=== PATIENT | female | born 1945 | race Caucasian/White ===

== ENCOUNTER 2017-07-04 13:08 | Inpatient (IN) | payer MEDICARE, MEDICAID ==
[~2017-07-04] VITALS: Ht 152.4 cm; Wt 45.5 kg
[~2017-07-04 13:08] MED LIST: ALBU8.5H8 IH; ATOR20TA66 PO; ATRIN INH; CEFP100T7 PO; FLUT1AER INH; GUAI1TBM19 PO; LEVO750T46 PO; LISI-600 PO; NO HOME MEDS; PRED10TA23 PO; VERA120T96 PO
[2017-07-04] MEDS ORDERED: dexamethasone sod phosphate 10mg/ml inj IV STA (13:19)
[2017-07-04] MEDS ORDERED: ipratropium/albuterol 3ml nebule NEB ONE (13:20)
[2017-07-04] MEDS ORDERED: azithromycin 250mg tablet PO ONE (13:25)
[2017-07-04] MEDS ORDERED: CefTRIAXone 2gm/NS 100ml IVPB 100 ML IV ONE (13:25)
[2017-07-04 13:37] LABS: BASOPHILS % (AUTO) 0.4 % (0-1); EOSINOPHILS # (AUTO) 0.1 X10'3 (0-0.9); HEMATOCRIT 52.4 % (35.0-45.0); HEMOGLOBIN 16.2 g/dl (12.0-16.0); LYMPHOCYTES # (AUTO) 1.3 X10'3 (1.1-4.8); LYMPHOCYTES % (AUTO) 15.4 % (21-51); MEAN CORPUSCULAR HEMOGLOBIN 28.6 PG (27.0-31.0); MEAN CORPUSCULAR HGB CONC 30.9 % (33.0-36.5); MEAN CORPUSCULAR VOLUME 92.5 FL (78-98); MEAN PLATELET VOLUME 10.4 FL (7.4-10.4); MONOCYTES # (AUTO) 0.9 X10'3 (0-0.9); MONOCYTES % (AUTO) 11.4 % (2-12); NEUTROPHILS # (AUTO) 5.9 X10'3 (1.8-7.7); NEUTROPHILS % (AUTO) 71.8 % (42-75); PLATELET COUNT 215 X10'3 (140-440); RED BLOOD COUNT 5.67 X10'6 (4.20-5.60); RED CELL DISTRIBUTION WIDTH 17.6 % (11.5-14.5); WHITE BLOOD COUNT 8.3 X10'3 (4.5-11.0)
[2017-07-04 13:46] LABS: ALANINE AMINOTRANSFERASE 58 U/L (12-78); ALBUMIN 2.6 G/DL (3.4-5.0); ALBUMIN/GLOBULIN RATIO 0.7 (1.1-1.5); ALKALINE PHOSPHATASE 93 IU/L (46-116); ANION GAP 3 (8-16); ASPARTATE AMINO TRANSFERASE 51 U/L (10-37); BILIRUBIN,TOTAL 0.8 MG/DL (0.1-1.0); BLOOD UREA NITROGEN 55 MG/DL (7-18); BUN/CREATININE RATIO 27.6 (6.6-38.0); CALCIUM 9.6 MG/DL (8.5-10.1); CHLORIDE 106 MMOL/L (99-107); CREATININE 1.99 MG/DL (0.40-0.90); GLUCOSE 111 MG/DL (70-104); POTASSIUM 5.9 MMOL/L (3.5-5.1); SODIUM 143 MMOL/L (135-145); TOTAL CARBON DIOXIDE 34.4 MMOL/L (24-32); TOTAL PROTEIN 6.4 G/DL (6.4-8.2); eGFR 25 ML/MIN
[2017-07-04 13:48] LABS: LARGE PLATELETS MODERATE; PLATELET ESTIMATE NORMAL
[2017-07-04] MEDS ORDERED: sodium polystyrene sulfonate 15gm/60ml oral suspension PO ONE (13:50)
[2017-07-04] MEDS ORDERED: dextrose 50%-water 50ml dispensing syringe IV ONE (13:50)
[2017-07-04] MEDS ORDERED: sodium bicarbonate (0.9mEq/ml) 44.6 mEq/50ml syringe IV ONE (13:50)
[2017-07-04] MEDS ORDERED: calcium chloride 100 MG/1 ML inj IV ONE (13:50)
[2017-07-04] MEDS ORDERED: furosemide 40mg/4ml inj IV ONE (13:50)
[2017-07-04] MEDS ORDERED: insulin regular, human 10 units/0.1 ml syringe IV ONE (13:50)
[2017-07-04 13:53] LABS: ETHANOL < 0.010 GM/DL (0.0-0.010)
[2017-07-04] MEDS ORDERED: aspirin 81mg tab.chew PO ONE (13:55)
[2017-07-04] MEDS ORDERED: sodium bicarbonate 1 MEQ/1 ml inj IV ONE (13:55)
[2017-07-04] MEDS ORDERED: heparin 10,000 units/1 ML INJ IV ONE ×2 (13:55→14:00)
[2017-07-04 14:05] LABS: ANISOCYTOSIS 2+; POLYCHROMASIA 1+; TARGET CELLS 1+
[2017-07-04] MEDS ORDERED: enalaprilat dihydrate 2.5mg/2ml vial IV ONE (14:05)
[2017-07-04] MEDS ORDERED: nitroGLYCERIN-Tridil 50MG/D5W 250 ML IV ONE (14:05)
[2017-07-04 14:16] LABS: ABG BASE EXCESS -0.6 mmol/L (-2.0-3.0); ABG HCO3 27.3 mmol/L (22.0-26.0); ABG OXYGEN SATURATION 71.9 % (95-98); ABG PCO2 (T) 57.3 mmHg (32.0-45.0); ABG PH (T) 7.296 (7.350-7.450); ABG PO2 (T) 41.5 mmHg (83-108); ALLEN'S TEST Positive; FCOHb 2.8 % (0.5-1.5); FMetHb 0.2 % (0.3-1.12); FO2Hb 69.7 % (94-100); TOTAL HEMOGLOBIN 16.7 G/dl (12.0-16.0)
[2017-07-04 14:20] LABS: INR 1.2 INR; PARTIAL THROMBOPLASTIN TIME 25 SECONDS (22-32); PROTHROMBIN TIME 12.1 SECONDS (9.0-12.0)
[2017-07-04 14:48] LABS: URINE AMPHETAMINE SCREEN NEGATIVE (Neg); URINE BARBITUATE SCREEN NEGATIVE (Neg); URINE BENZODIAZEPINES SCREEN NEGATIVE (Neg); URINE CANNABINOID SCREEN NEGATIVE (Neg); URINE COCAINE SCREEN NEGATIVE (Neg); URINE METHADONE SCREEN NEGATIVE (Neg); URINE OPIATE SCREEN NEGATIVE (Neg); URINE PHENCYCLIDINE SCREEN NEGATIVE (Neg)
[2017-07-04] MEDS ORDERED: acetaZOLAMIDE 250mg tablet PO ONE (15:30)
[2017-07-04] MEDS ORDERED: normal saline 1000ml 1,000 ML IV SCH (15:33)
[2017-07-04] MEDS ORDERED: potassium Cl 40MEQ/NS 500ml 500 ML IV PRN ×2 (15:35)
[2017-07-04] MEDS ORDERED: acetaminophen 325mg tablet PO PRN (15:35)
[2017-07-04] MEDS ORDERED: magnesium hydroxide 30ml (MOM) UD suspension PO PRN (15:35)
[2017-07-04] MEDS ORDERED: magnesium 4gm in 100ml NS 100 ML IV PRN (15:35)
[2017-07-04] MEDS ORDERED: ondansetron/PF 4mg/2ml inj IV PRN (15:35)
[2017-07-04] MEDS ORDERED: potassium Cl 20 mEq SR tablet PO PRN ×2 (15:35)
[2017-07-04] MEDS ORDERED: morphine sulfate 8 MG/ML SYRINGE IV PRN ×2 (15:35)
[2017-07-04] MEDS ORDERED: magnesium 2GM in 50ml NS 50 ML IV PRN (15:35)
[2017-07-04] MEDS ORDERED: magnesium Cl slow-release 64mg tablet PO PRN (15:35)
[2017-07-04 15:50] LABS: ABG BASE EXCESS 5.5 mmol/L (-2.0-3.0); ABG HCO3 34.4 mmol/L (22.0-26.0); ABG PCO2 (T) 67.6 mmHg (32.0-45.0); ABG PH (T) 7.324 (7.350-7.450); ALLEN'S TEST Positive; FCOHb 2.2 % (0.5-1.5); FMetHb 0.4 % (0.3-1.12); FO2Hb 96.4 % (94-100); RESPIRATORY RATE 16 b/min; RESPIRATORY RATE (OBSERVED) 18 b/min; TOTAL HEMOGLOBIN 16.4 G/dl (12.0-16.0)
[2017-07-04 15:55] LABS: CLARITY,URINE CLOUDY (Clear); COLOR,URINE YELLOW (Yellow); GLUCOSE, URINE NEGATIVE (Neg); KETONES,URINE NEGATIVE (Neg); LEUKOCYTE ESTERASE ,URINE LARGE (Neg); NITRITES, URINE NEGATIVE (Neg); OCCULT BLOOD,URINE TRACE-INTACT (Neg); PROTEIN,URINE 30 mg/dl (Neg)
[2017-07-04 15:56] LABS: UA COLLECTION TYPE FOLEY CATH
[2017-07-04 15:58] LABS: CREATININE,URINE RANDOM 317.9 MG/DL; TOTAL PROTEIN,URINE RANDOM 86.5 MG/DL
[2017-07-04] MEDS ORDERED: levoFLOXACIN-Levaquin 500mg/D5 100 ML IV ONE (16:00)
[2017-07-04 16:03] LABS: WBC,URINE TNTC /HPF (0-4)
[2017-07-04 16:04] LABS: BACTERIA,URINE FEW /HPF (Neg); RBC,URINE 0-2 /HPF (0-2); SQUAMOUS EPITHELIAL CELL,UR FEW /LPF (FEW)
[2017-07-04] MEDS ORDERED: nitroGLYCERIN 0.4mg/hour patch TD SCH (16:25)
[2017-07-04 19:00] VITALS: BP 136/83
[2017-07-04] MEDS ORDERED: verapamil SR 120mg (sust. release) tab PO SCH (20:00)
[2017-07-04] MEDS ORDERED: GUAIFENESIN PO SCH (20:00)
[2017-07-04] MEDS ORDERED: DEXTROMETHORPHAN PO SCH (20:00)
[2017-07-04] MEDS ORDERED: temazepam 15mg capsule PO PRN (21:00)
[2017-07-04] MEDS ORDERED: heparin 10,000 units/1 ML INJ IV PRN ×2 (21:45→21:50)
[2017-07-04 23:00] VITALS: BP 122/80
[2017-07-05 01:39] LABS: BASOPHILS % (AUTO) 0.3 % (0-1); EOSINOPHILS % (AUTO) 0 % (0-6); HEMATOCRIT 46.2 % (35.0-45.0); HEMOGLOBIN 14.7 g/dl (12.0-16.0); LYMPHOCYTES # (AUTO) 0.7 X10'3 (1.1-4.8); LYMPHOCYTES % (AUTO) 11.1 % (21-51); MEAN CORPUSCULAR HGB CONC 31.7 % (33.0-36.5); MEAN CORPUSCULAR VOLUME 91.3 FL (78-98); MEAN PLATELET VOLUME 10.5 FL (7.4-10.4); MONOCYTES # (AUTO) 0.9 X10'3 (0-0.9); MONOCYTES % (AUTO) 13.1 % (2-12); NEUTROPHILS # (AUTO) 5.1 X10'3 (1.8-7.7); NEUTROPHILS % (AUTO) 75.5 % (42-75); PLATELET COUNT 181 X10'3 (140-440); RED BLOOD COUNT 5.06 X10'6 (4.20-5.60); RED CELL DISTRIBUTION WIDTH 17.5 % (11.5-14.5); WHITE BLOOD COUNT 6.7 X10'3 (4.5-11.0)
[2017-07-05 01:54] LABS: ALANINE AMINOTRANSFERASE 48 U/L (12-78); ALBUMIN 2.2 G/DL (3.4-5.0); ALBUMIN/GLOBULIN RATIO 0.7 (1.1-1.5); ALKALINE PHOSPHATASE 75 IU/L (46-116); ANION GAP 3 (8-16); ASPARTATE AMINO TRANSFERASE 43 U/L (10-37); BILIRUBIN,TOTAL 0.4 MG/DL (0.1-1.0); BLOOD UREA NITROGEN 54 MG/DL (7-18); BUN/CREATININE RATIO 36.7 (6.6-38.0); CALCIUM 9.2 MG/DL (8.5-10.1); CHLORIDE 107 MMOL/L (99-107); CREATININE 1.47 MG/DL (0.40-0.90); GLUCOSE 106 MG/DL (70-104); POTASSIUM 4.2 MMOL/L (3.5-5.1); SODIUM 146 MMOL/L (135-145); TOTAL CARBON DIOXIDE 36.3 MMOL/L (24-32); TOTAL PROTEIN 5.4 G/DL (6.4-8.2); eGFR 35 ML/MIN
[2017-07-05 01:57] LABS: CHOL/HDL RATIO 5.1 (0.00-4.99); CHOLESTEROL 122 MG/DL (0-200); HDL CHOLESTEROL 24 MG/DL (35-60); LDL CHOLESTEROL 95 MG/DL (50-100); MAGNESIUM 1.7 MG/DL (1.5-2.4); TRIGLYCERIDES 46 MG/DL (20-135)
[2017-07-05 03:00] VITALS: BP 133/67
[2017-07-05 06:00] VITALS: BP 109/56
[2017-07-05] MEDS: K and/or MAG REPLACEMENT MC SCH (06:54)
[2017-07-05] MEDS: atorvastatin 20mg tablet PO SCH (07:34)
[2017-07-05] MEDS: aspirin 81mg tab.chew PO SCH (07:45)
[2017-07-05] MEDS ORDERED: lisinopril 20mg tablet PO SCH (08:00)
[2017-07-05 11:00] VITALS: BP 125/57
[2017-07-05 15:00] VITALS: BP 107/67
[2017-07-05] MEDS: normal saline 1000ml 1,000 ML IV SCH (17:58)
[2017-07-05 19:00] VITALS: BP 117/66
[2017-07-05] MEDS: nitroGLYCERIN 0.4mg/hour patch TD SCH (19:37)
[2017-07-05 23:00] VITALS: BP 115/55
[2017-07-06 03:00] VITALS: BP 123/55
[2017-07-06 05:33] LABS: BASOPHILS % (AUTO) 0.5 % (0-1); EOSINOPHILS # (AUTO) 0.2 X10'3 (0-0.9); EOSINOPHILS % (AUTO) 1.9 % (0-6); HEMATOCRIT 44.1 % (35.0-45.0); HEMOGLOBIN 13.7 g/dl (12.0-16.0); LYMPHOCYTES # (AUTO) 1.7 X10'3 (1.1-4.8); LYMPHOCYTES % (AUTO) 18.9 % (21-51); MEAN CORPUSCULAR HEMOGLOBIN 28.8 PG (27.0-31.0); MEAN CORPUSCULAR HGB CONC 31.1 % (33.0-36.5); MEAN CORPUSCULAR VOLUME 92.7 FL (78-98); MEAN PLATELET VOLUME 10.5 FL (7.4-10.4); MONOCYTES # (AUTO) 1.4 X10'3 (0-0.9); MONOCYTES % (AUTO) 15.6 % (2-12); NEUTROPHILS # (AUTO) 5.7 X10'3 (1.8-7.7); NEUTROPHILS % (AUTO) 63.1 % (42-75); PLATELET COUNT 170 X10'3 (140-440); RED BLOOD COUNT 4.76 X10'6 (4.20-5.60); RED CELL DISTRIBUTION WIDTH 17.8 % (11.5-14.5)
[2017-07-06 06:00] VITALS: BP 105/73
[2017-07-06 06:06] LABS: ALANINE AMINOTRANSFERASE 51 U/L (12-78); ALBUMIN 2.2 G/DL (3.4-5.0); ALBUMIN/GLOBULIN RATIO 0.7 (1.1-1.5); ALKALINE PHOSPHATASE 74 IU/L (46-116); ANION GAP 2 (8-16); ASPARTATE AMINO TRANSFERASE 39 U/L (10-37); BILIRUBIN,TOTAL 0.3 MG/DL (0.1-1.0); BLOOD UREA NITROGEN 44 MG/DL (7-18); CHLORIDE 108 MMOL/L (99-107); CREATININE 0.83 MG/DL (0.40-0.90); GLUCOSE 99 MG/DL (70-104); MAGNESIUM 1.9 MG/DL (1.5-2.4); POTASSIUM 4.1 MMOL/L (3.5-5.1); SODIUM 146 MMOL/L (135-145); TOTAL CARBON DIOXIDE 36.1 MMOL/L (24-32); TOTAL PROTEIN 5.4 G/DL (6.4-8.2); eGFR 68 ML/MIN
[2017-07-06] MEDS: atorvastatin 20mg tablet PO SCH (07:05)
[2017-07-06] MEDS: aspirin 81mg tab.chew PO SCH (07:05)
[2017-07-06] MEDS: normal saline 1000ml 1,000 ML IV SCH (07:06)
[2017-07-06] MEDS: K and/or MAG REPLACEMENT MC SCH (08:00)
[2017-07-06] MEDS ORDERED: levoFLOXACIN-Levaquin 250mg/D5 50 ML IV SCH (08:00)
[2017-07-06 09:24] LABS: PLATELET ESTIMATE NORMAL; POLYCHROMASIA FEW; TOTAL CELLS COUNTED 100
[2017-07-06 09:25] LABS: SMUDGE CELLS 2+
[2017-07-06 09:26] LABS: LARGE PLATELETS FEW; TARGET CELLS FEW
[2017-07-06 10:35] LABS: ABG BASE EXCESS 4.2 mmol/L (-2.0-3.0); ABG HCO3 34.6 mmol/L (22.0-26.0); ABG OXYGEN SATURATION 92.3 % (95-98); ABG PCO2 (T) 80.6 mmHg (32.0-45.0); ABG PO2 (T) 69.1 mmHg (83-108); ALLEN'S TEST Positive; FCOHb 0.7 % (0.5-1.5); FMetHb 0.3 % (0.3-1.12); FO2Hb 91.4 % (94-100)
[2017-07-06 11:00] VITALS: BP 122/61
[2017-07-06 15:00] VITALS: BP 123/55
[2017-07-06 16:00] LABS: ABG BASE EXCESS 4.6 mmol/L (-2.0-3.0); ABG HCO3 33.5 mmol/L (22.0-26.0); ABG PCO2 (T) 69.6 mmHg (32.0-45.0); ALLEN'S TEST Positive; FCOHb 0.5 % (0.5-1.5); FMetHb 0.3 % (0.3-1.12); FO2Hb 91.3 % (94-100); RESPIRATORY RATE 16 b/min
[2017-07-06] MEDS ORDERED: CADD PCA waste documentation MC PRN (16:55)
[2017-07-06] MEDS ORDERED: naloxone 0.4 mg/ml inj IV PRN (16:55)
[2017-07-06] MEDS ORDERED: ipratropium/albuterol 3ml nebule NEB PRN (16:55)
[2017-07-06] MEDS ORDERED: HYDROmorphone/NS 1 mg/ml CADD 50 ML IV SCH (17:00)
[2017-07-06] MEDS: methylPREDNISolone sod succ 125mg/2ml vial IV SCH ×2 (17:40→22:02)
[2017-07-06 19:00] VITALS: BP 132/79
[2017-07-06] MEDS: nitroGLYCERIN 0.4mg/hour patch TD SCH (19:30)
[2017-07-06] MEDS: ipratropium/albuterol 3ml nebule NEB SCH (20:51)
[2017-07-06 23:00] VITALS: BP 118/55
[2017-07-07] VITALS (8 sets, daily range): BP systolic 119–161; BP diastolic 59–82
[2017-07-07] MEDS: methylPREDNISolone sod succ 125mg/2ml vial IV SCH ×4 (01:48→20:12)
[2017-07-07] MEDS: ipratropium/albuterol 3ml nebule NEB SCH ×4 (03:30→21:09)
[2017-07-07 05:25] LABS: BASOPHILS % (AUTO) 0.1 % (0-1); EOSINOPHILS % (AUTO) 0.2 % (0-6); HEMOGLOBIN 14.7 g/dl (12.0-16.0); LYMPHOCYTES # (AUTO) 0.2 X10'3 (1.1-4.8); LYMPHOCYTES % (AUTO) 5.6 % (21-51); MEAN CORPUSCULAR HEMOGLOBIN 28.9 PG (27.0-31.0); MEAN CORPUSCULAR HGB CONC 31.4 % (33.0-36.5); MEAN CORPUSCULAR VOLUME 92.1 FL (78-98); MEAN PLATELET VOLUME 10.4 FL (7.4-10.4); MONOCYTES # (AUTO) 0.1 X10'3 (0-0.9); MONOCYTES % (AUTO) 1.3 % (2-12); NEUTROPHILS % (AUTO) 92.8 % (42-75); PLATELET COUNT 152 X10'3 (140-440); RED CELL DISTRIBUTION WIDTH 17.7 % (11.5-14.5); WHITE BLOOD COUNT 4.4 X10'3 (4.5-11.0)
[2017-07-07 05:53] LABS: ALANINE AMINOTRANSFERASE 41 U/L (12-78); ALBUMIN 2.2 G/DL (3.4-5.0); ALBUMIN/GLOBULIN RATIO 0.6 (1.1-1.5); ALKALINE PHOSPHATASE 73 IU/L (46-116); ANION GAP 0 (8-16); ASPARTATE AMINO TRANSFERASE 22 U/L (10-37); BILIRUBIN,TOTAL 0.4 MG/DL (0.1-1.0); BLOOD UREA NITROGEN 33 MG/DL (7-18); BUN/CREATININE RATIO 47.8 (6.6-38.0); CALCIUM 9.4 MG/DL (8.5-10.1); CHLORIDE 108 MMOL/L (99-107); CREATININE 0.69 MG/DL (0.40-0.90); GLUCOSE 146 MG/DL (70-104); MAGNESIUM 1.9 MG/DL (1.5-2.4); POTASSIUM 4.7 MMOL/L (3.5-5.1); SODIUM 142 MMOL/L (135-145); TOTAL CARBON DIOXIDE 34.4 MMOL/L (24-32); TOTAL PROTEIN 5.7 G/DL (6.4-8.2); eGFR 84 ML/MIN
[2017-07-07] MEDS: K and/or MAG REPLACEMENT MC SCH (06:33)
[2017-07-07] MEDS: aspirin 81mg tab.chew PO SCH (07:28)
[2017-07-07] MEDS: atorvastatin 20mg tablet PO SCH (07:28)
[2017-07-07] MEDS: lactobacillus rhamnosus 10,000 MMU CELLS/CAPSULE PO SCH (17:12)
[2017-07-07] MEDS: nitroGLYCERIN 0.4mg/hour patch TD SCH (19:12)
[2017-07-07] MEDS: mag hydrox/Alum hydrox/simeth 30ml oral suspension PO PRN (21:09)
[2017-07-08] MEDS: mag hydrox/Alum hydrox/simeth 30ml oral suspension PO PRN (01:43)
[2017-07-08] MEDS: methylPREDNISolone sod succ 125mg/2ml vial IV SCH ×2 (01:43→08:26)
[2017-07-08] MEDS: ipratropium/albuterol 3ml nebule NEB SCH ×4 (02:50→20:06)
[2017-07-08 03:00] VITALS: BP 116/45
[2017-07-08 05:24] LABS: BASOPHILS % (AUTO) 0 % (0-1); EOSINOPHILS # (AUTO) 0.1 X10'3 (0-0.9); EOSINOPHILS % (AUTO) 1.3 % (0-6); HEMOGLOBIN 14.3 g/dl (12.0-16.0); LYMPHOCYTES # (AUTO) 0.3 X10'3 (1.1-4.8); LYMPHOCYTES % (AUTO) 2.3 % (21-51); MEAN CORPUSCULAR HEMOGLOBIN 28.8 PG (27.0-31.0); MEAN CORPUSCULAR HGB CONC 31.8 % (33.0-36.5); MEAN CORPUSCULAR VOLUME 90.3 FL (78-98); MEAN PLATELET VOLUME 10.5 FL (7.4-10.4); MONOCYTES # (AUTO) 0.4 X10'3 (0-0.9); NEUTROPHILS # (AUTO) 10.1 X10'3 (1.8-7.7); NEUTROPHILS % (AUTO) 92.4 % (42-75); PLATELET COUNT 151 X10'3 (140-440); RED BLOOD COUNT 4.98 X10'6 (4.20-5.60); WHITE BLOOD COUNT 10.9 X10'3 (4.5-11.0)
[2017-07-08 05:35] LABS: ALANINE AMINOTRANSFERASE 33 U/L (12-78); ALBUMIN 2.3 G/DL (3.4-5.0); ALBUMIN/GLOBULIN RATIO 0.7 (1.1-1.5); ALKALINE PHOSPHATASE 65 IU/L (46-116); ANION GAP 2 (8-16); ASPARTATE AMINO TRANSFERASE 20 U/L (10-37); BILIRUBIN,TOTAL 0.5 MG/DL (0.1-1.0); BLOOD UREA NITROGEN 30 MG/DL (7-18); BUN/CREATININE RATIO 41.1 (6.6-38.0); CALCIUM 9.5 MG/DL (8.5-10.1); CHLORIDE 107 MMOL/L (99-107); CREATININE 0.73 MG/DL (0.40-0.90); GLUCOSE 147 MG/DL (70-104); POTASSIUM 4.1 MMOL/L (3.5-5.1); SODIUM 143 MMOL/L (135-145); TOTAL CARBON DIOXIDE 34.5 MMOL/L (24-32); TOTAL PROTEIN 5.8 G/DL (6.4-8.2); eGFR 78 ML/MIN
[2017-07-08 06:00] VITALS: BP 142/83
[2017-07-08] MEDS: K and/or MAG REPLACEMENT MC SCH (08:00)
[2017-07-08] MEDS: aspirin 81mg tab.chew PO SCH (08:26)
[2017-07-08] MEDS: lactobacillus rhamnosus 10,000 MMU CELLS/CAPSULE PO SCH ×2 (08:26→17:32)
[2017-07-08] MEDS: atorvastatin 20mg tablet PO SCH (08:26)
[2017-07-08] MEDS: levoFLOXACIN 250mg tablet PO SCH (10:59)
[2017-07-08 11:00] VITALS: BP 163/71
[2017-07-08 15:00] VITALS: BP 165/73
[2017-07-08 19:00] VITALS: BP 161/86
[2017-07-08] MEDS: nitroGLYCERIN 0.4mg/hour patch TD SCH (19:32)
[2017-07-08] MEDS: methylPREDNISolone sod succ/PF 40mg inj. IV SCH (20:19)
[2017-07-08 23:00] VITALS: BP 152/74
[2017-07-09 03:00] VITALS: BP 146/85
[2017-07-09] MEDS: ipratropium/albuterol 3ml nebule NEB SCH ×4 (03:38→20:07)
[2017-07-09 05:19] LABS: BASOPHILS % (AUTO) 0 % (0-1); EOSINOPHILS # (AUTO) 0.1 X10'3 (0-0.9); HEMATOCRIT 47.1 % (35.0-45.0); HEMOGLOBIN 14.9 g/dl (12.0-16.0); LYMPHOCYTES # (AUTO) 0.4 X10'3 (1.1-4.8); LYMPHOCYTES % (AUTO) 2.8 % (21-51); MEAN CORPUSCULAR HEMOGLOBIN 28.9 PG (27.0-31.0); MEAN CORPUSCULAR HGB CONC 31.6 % (33.0-36.5); MEAN CORPUSCULAR VOLUME 91.5 FL (78-98); MEAN PLATELET VOLUME 10.7 FL (7.4-10.4); MONOCYTES # (AUTO) 0.7 X10'3 (0-0.9); MONOCYTES % (AUTO) 5.3 % (2-12); NEUTROPHILS # (AUTO) 11.4 X10'3 (1.8-7.7); NEUTROPHILS % (AUTO) 90.9 % (42-75); PLATELET COUNT 140 X10'3 (140-440); RED BLOOD COUNT 5.15 X10'6 (4.20-5.60); RED CELL DISTRIBUTION WIDTH 17.5 % (11.5-14.5); WHITE BLOOD COUNT 12.6 X10'3 (4.5-11.0)
[2017-07-09 05:33] LABS: ALANINE AMINOTRANSFERASE 35 U/L (12-78); ALBUMIN 2.4 G/DL (3.4-5.0); ALBUMIN/GLOBULIN RATIO 0.7 (1.1-1.5); ALKALINE PHOSPHATASE 62 IU/L (46-116); ANION GAP 0 (8-16); ASPARTATE AMINO TRANSFERASE 20 U/L (10-37); BILIRUBIN,TOTAL 0.5 MG/DL (0.1-1.0); BLOOD UREA NITROGEN 27 MG/DL (7-18); BUN/CREATININE RATIO 44.3 (6.6-38.0); CALCIUM 9.9 MG/DL (8.5-10.1); CHLORIDE 107 MMOL/L (99-107); CREATININE 0.61 MG/DL (0.40-0.90); GLUCOSE 129 MG/DL (70-104); POTASSIUM 4.6 MMOL/L (3.5-5.1); SODIUM 141 MMOL/L (135-145); TOTAL CARBON DIOXIDE 34.4 MMOL/L (24-32); TOTAL PROTEIN 5.9 G/DL (6.4-8.2); eGFR > 90 ML/MIN
[2017-07-09 06:00] VITALS: BP 137/62
[2017-07-09] MEDS: K and/or MAG REPLACEMENT MC SCH (08:00)
[2017-07-09] MEDS: lactobacillus rhamnosus 10,000 MMU CELLS/CAPSULE PO SCH ×2 (08:12→17:10)
[2017-07-09] MEDS: methylPREDNISolone sod succ/PF 40mg inj. IV SCH ×2 (08:13→19:05)
[2017-07-09] MEDS: atorvastatin 20mg tablet PO SCH (08:13)
[2017-07-09] MEDS: aspirin 81mg tab.chew PO SCH (08:13)
[2017-07-09 08:18] LABS: LARGE PLATELETS FEW; PLATELET ESTIMATE NORMAL
[2017-07-09 11:00] VITALS: BP 158/91
[2017-07-09] MEDS: levoFLOXACIN 250mg tablet PO SCH (11:21)
[2017-07-09] MEDS: mag hydrox/Alum hydrox/simeth 30ml oral suspension PO PRN (14:07)
[2017-07-09 15:00] VITALS: BP 151/75
[2017-07-09 19:00] VITALS: BP 165/85
[2017-07-09] MEDS: nitroGLYCERIN 0.4mg/hour patch TD SCH (19:05)
[2017-07-09 23:00] VITALS: BP 162/74
[2017-07-10 03:00] VITALS: BP 160/90
[2017-07-10] MEDS: ipratropium/albuterol 3ml nebule NEB SCH ×2 (03:17→08:58)
[2017-07-10 06:00] VITALS: BP 158/76
[2017-07-10] MEDS: K and/or MAG REPLACEMENT MC SCH (08:00)
[2017-07-10] MEDS: lactobacillus rhamnosus 10,000 MMU CELLS/CAPSULE PO SCH (08:25)
[2017-07-10] MEDS: aspirin 81mg tab.chew PO SCH (08:25)
[2017-07-10] MEDS: atorvastatin 20mg tablet PO SCH (08:25)
[2017-07-10] MEDS: methylPREDNISolone sod succ/PF 40mg inj. IV SCH (08:25)
[2017-07-10] MEDS ORDERED: bacitracin 15gm ointment TP ONE (09:00)
[2017-07-10] MEDS ORDERED: VERA120T96 PO (09:50)
[2017-07-10] MEDS ORDERED: ATOR20TA66 PO (09:50)
[2017-07-10] MEDS ORDERED: LEVO250T58 PO (09:50)
[2017-07-10] MEDS ORDERED: ASPI-1265 PO (09:50)
[2017-07-10] MEDS ORDERED: PRED5SOL PO (09:50)
[2017-07-10] MEDS ORDERED: TEMA15CA PO (09:50)
[2017-07-10] MEDS ORDERED: LISI-600 PO (09:50)
[2017-07-10] MEDS: levoFLOXACIN 250mg tablet PO SCH (10:35)
[2017-07-10 11:00] VITALS: BP 158/85
[2017-07-11] MEDS ORDERED: predniSONE 5mg/5ml UD oral solution PO SCH (08:30)
== END 2017-07-10 13:05 | DRG 280 ==
LOC: ER 13:09 → ED HOLD 15:43 → PCU 3S 17:05
PROVIDERS: ADMIT Internal Medicine; ATTEND Family Medicine
PROC: 5A09357 Assistance with Respiratory Ventilation, Less than 24 Consecutive Hours, Continuous Positive Airway Pressure (ICD-10-PCS; principal; 2017-07-04)
PROC: 5A09357 Assistance with Respiratory Ventilation, Less than 24 Consecutive Hours, Continuous Positive Airway Pressure (ICD-10-PCS; 2017-07-05)
PROC: 5A09357 Assistance with Respiratory Ventilation, Less than 24 Consecutive Hours, Continuous Positive Airway Pressure (ICD-10-PCS; 2017-07-06)
PROC: 5A09357 Assistance with Respiratory Ventilation, Less than 24 Consecutive Hours, Continuous Positive Airway Pressure (ICD-10-PCS; 2017-07-07)
DX: I21.4 Non-ST elevation (NSTEMI) myocardial infarction (principal); J96.01 Acute respiratory failure with hypoxia; E87.4 Mixed disorder of acid-base balance; I50.33 Acute on chronic diastolic (congestive) heart failure; N17.9 Acute kidney failure, unspecified; D68.9 Coagulation defect, unspecified; E87.5 Hyperkalemia; D75.1 Secondary polycythemia; I13.0 Hypertensive heart and chronic kidney disease with heart failure and stage 1 through stage 4 chronic kidney disease, or unspecified chronic kidney disease; J44.1 Chronic obstructive pulmonary disease with (acute) exacerbation; Z68.1 Body mass index [BMI] 19.9 or less, adult; R64 Cachexia; E86.0 Dehydration; E78.5 Hyperlipidemia, unspecified; G89.29 Other chronic pain; I27.20 Pulmonary hypertension, unspecified; N18.9 Chronic kidney disease, unspecified; R74.0 Nonspecific elevation of levels of transaminase and lactic acid dehydrogenase [LDH]; M54.9 Dorsalgia, unspecified; R91.1 Solitary pulmonary nodule; F17.210 Nicotine dependence, cigarettes, uncomplicated; Z59.0 Homelessness; Z90.710 Acquired absence of both cervix and uterus; Z88.0 Allergy status to penicillin; Z88.1 Allergy status to other antibiotic agents; Z91.041 Radiographic dye allergy status; Z88.8 Allergy status to other drugs, medicaments and biological substances; Z88.6 Allergy status to analgesic agent; Z79.82 Long term (current) use of aspirin; Z79.899 Other long term (current) drug therapy; Z71.6 Tobacco abuse counseling
CPT/HCPCS: 36415; 36600; 71010; 80053; 80061; 80305; 80320; 81001; 82570; 82803; 82948; 83605; 83735; 83880; 84133; 84145; 84156; 84300; 84484; 85018; 85025; 85610; 85730; 87040; 87070; 87088; 87324; 87449; 93005; 93306; 94640; 94660; 94760; 96365; 96375; 97116; 97161; 99291; 99292; A4315; A6213; J0696; J1100; J1170; J1644; J1815; J1940; J1956; J2920; J2930; J3490; J7030

== ENCOUNTER 2018-09-13 00:59 | Emergency (ER) | payer MEDICARE, MEDICAID ==
[~2018-09-13] VITALS: Ht 152.4 cm; Wt 46.8 kg
[~2018-09-13 00:59] MED LIST changes: -ALBU8.5H8 IH; +ASPI-1265 PO; -ATRIN INH; -CEFP100T7 PO; -FLUT1AER INH; -GUAI1TBM19 PO; +LEVO250T58 PO; -LEVO750T46 PO; -PRED10TA23 PO; +PRED5SOL PO; +TEMA15CA PO
[2018-09-13] MEDS ORDERED: ipratropium/albuterol 3ml nebule NEB ONE (01:20)
[2018-09-13 01:37] LABS: BASOPHILS # (AUTO) 0.1 X10'3 (0-0.2); BASOPHILS % (AUTO) 1.7 % (0-1); EOSINOPHILS # (AUTO) 0.1 X10'3 (0-0.9); EOSINOPHILS % (AUTO) 1.4 % (0-6); HEMATOCRIT 44.5 % (35.0-45.0); HEMOGLOBIN 14.1 g/dl (12.0-16.0); LYMPHOCYTES # (AUTO) 1.6 X10'3 (1.1-4.8); LYMPHOCYTES % (AUTO) 24.8 % (21-51); MEAN CORPUSCULAR HEMOGLOBIN 29.4 PG (27.0-31.0); MEAN CORPUSCULAR HGB CONC 31.8 g/dL (33.0-36.5); MEAN CORPUSCULAR VOLUME 92.5 FL (78-98); MEAN PLATELET VOLUME 8.6 FL (7.4-10.4); MONOCYTES # (AUTO) 0.7 X10'3 (0-0.9); MONOCYTES % (AUTO) 11.9 % (2-12); NEUTROPHILS # (AUTO) 3.8 X10'3 (1.8-7.7); NEUTROPHILS % (AUTO) 60.2 % (42-75); PLATELET COUNT 369 X10'3 (140-440); RED BLOOD COUNT 4.81 X10'6 (4.20-5.60); RED CELL DISTRIBUTION WIDTH 14.8 % (11.5-14.5); WHITE BLOOD COUNT 6.3 X10'3 (4.5-11.0)
[2018-09-13 01:47] LABS: ALANINE AMINOTRANSFERASE 15 U/L (12-78); ALBUMIN 2.8 G/DL (3.4-5.0); ALBUMIN/GLOBULIN RATIO 0.7 (1.1-1.5); ALKALINE PHOSPHATASE 86 IU/L (46-116); ANION GAP 1 (8-16); ASPARTATE AMINO TRANSFERASE 18 U/L (10-37); BILIRUBIN,TOTAL 0.2 MG/DL (0.1-1.0); BLOOD UREA NITROGEN 18 MG/DL (7-18); BUN/CREATININE RATIO 25.4 (6.6-38.0); CALCIUM 9.7 MG/DL (8.5-10.1); CHLORIDE 99 MMOL/L (99-107); CREATININE 0.71 MG/DL (0.40-0.90); GLUCOSE 90 MG/DL (70-104); POTASSIUM 4.3 MMOL/L (3.5-5.1); SODIUM 134 MMOL/L (135-145); TOTAL CARBON DIOXIDE 33.7 MMOL/L (24-32); TOTAL PROTEIN 6.8 G/DL (6.4-8.2); eGFR 80 ML/MIN
[2018-09-13 01:54] LABS: MAGNESIUM 1.8 MG/DL (1.5-2.4)
--- NOTE | 2018-09-13 02:52 | NUR ---
Patient resting comfortably in bed with no complaints at this time. She requests something to drink which was provided.
[2018-09-13] MEDS ORDERED: LEVO500T2 PO (03:57)
[2018-09-13 04:29] VITALS: BP 121/71
== END 2018-09-13 04:32 | disposition home or self-care (01) ==
LOC: ER 01:00
DX: I87.2 Venous insufficiency (chronic) (peripheral) (principal); R91.8 Other nonspecific abnormal finding of lung field; I10 Essential (primary) hypertension; J44.9 Chronic obstructive pulmonary disease, unspecified; G89.29 Other chronic pain; F17.200 Nicotine dependence, unspecified, uncomplicated; Z59.0 Homelessness; Z90.710 Acquired absence of both cervix and uterus; Z88.0 Allergy status to penicillin; Z88.6 Allergy status to analgesic agent; Z79.82 Long term (current) use of aspirin; Z79.899 Other long term (current) drug therapy
CPT/HCPCS: 36415; 71045; 71250; 80053; 83735; 83880; 85025; 94640; 94760; 99284

== ENCOUNTER 2018-09-30 22:41 | Emergency (ER) | payer MEDICARE, MEDICAID ==
[~2018-09-30] VITALS: Ht 157.5 cm; Wt 54.0 kg
[~2018-09-30 22:41] MED LIST changes: +LEVO500T2 PO; +VERA120T9 PO; -VERA120T96 PO
[2018-09-30 23:09] LABS: BASOPHILS # (AUTO) 0.1 X10'3 (0-0.2); EOSINOPHILS % (AUTO) 0.7 % (0-6); MEAN CORPUSCULAR VOLUME 89.9 FL (78-98); MONOCYTES # (AUTO) 1.1 X10'3 (0-0.9); RED BLOOD COUNT 4.74 X10'6 (4.20-5.60)
[2018-09-30 23:11] LABS: BASOPHILS % (AUTO) 0.9 % (0-1); HEMATOCRIT 42.7 % (35.0-45.0); HEMOGLOBIN 13.3 g/dl (12.0-16.0); LYMPHOCYTES % (AUTO) 14.3 % (21-51); MEAN CORPUSCULAR HGB CONC 31.2 g/dL (33.0-36.5); MEAN PLATELET VOLUME 8.8 FL (7.4-10.4); MONOCYTES % (AUTO) 15.5 % (2-12); NEUTROPHILS # (AUTO) 4.9 X10'3 (1.8-7.7); NEUTROPHILS % (AUTO) 68.6 % (42-75); PLATELET COUNT 321 X10'3 (140-440); RED CELL DISTRIBUTION WIDTH 15.7 % (11.5-14.5); WHITE BLOOD COUNT 7.2 X10'3 (4.5-11.0)
[2018-09-30 23:48] LABS: PROTHROMBIN TIME 10.9 SECONDS (9.0-12.0)
[2018-09-30 23:49] LABS: INR 1.1 INR; PARTIAL THROMBOPLASTIN TIME 29 SECONDS (22-32)
[2018-10-01 00:06] LABS: ALANINE AMINOTRANSFERASE 14 U/L (12-78); ALBUMIN 2.6 G/DL (3.4-5.0); ALBUMIN/GLOBULIN RATIO 0.7 (1.1-1.5); ALKALINE PHOSPHATASE 69 IU/L (46-116); ANION GAP 1 (8-16); BILIRUBIN,TOTAL 0.4 MG/DL (0.1-1.0); BLOOD UREA NITROGEN 15 MG/DL (7-18); BUN/CREATININE RATIO 21.4 (6.6-38.0); CALCIUM 9.7 MG/DL (8.5-10.1); CHLORIDE 100 MMOL/L (99-107); GLUCOSE 82 MG/DL (70-104); POTASSIUM 4.3 MMOL/L (3.5-5.1); SODIUM 135 MMOL/L (135-145); TOTAL CARBON DIOXIDE 34.2 MMOL/L (24-32); TOTAL PROTEIN 6.6 G/DL (6.4-8.2); eGFR 82 ML/MIN
[2018-10-01 00:09] LABS: LARGE PLATELETS FEW; PLATELET ESTIMATE NORMAL
[2018-10-01] MEDS ORDERED: ipratropium/albuterol 3ml nebule NEB ONE (00:10)
[2018-10-01] MEDS ORDERED: furosemide 10 MG/1 ML 10ml inj IV ONE (00:10)
--- NOTE | 2018-10-01 00:24 | NUR ---
UPON REEVALUATION OF PT, STATES NO ISSUES AT THIS TIME OTHER THAN BEING HUNGRY AND REQUESTING A SANDWICH. HOMELESS BAG PROVIDED
[2018-10-01 00:31] LABS: ASPARTATE AMINO TRANSFERASE 18 U/L (10-37)
[2018-10-01 01:13] VITALS: BP 168/89
[2018-10-01] MEDS ORDERED: FURO-149 PO (01:35)
== END 2018-10-01 02:01 | disposition home or self-care (01) ==
LOC: ER 22:42
DX: I12.9 Hypertensive chronic kidney disease with stage 1 through stage 4 chronic kidney disease, or unspecified chronic kidney disease (principal); N18.9 Chronic kidney disease, unspecified; J44.9 Chronic obstructive pulmonary disease, unspecified; G89.29 Other chronic pain; M54.9 Dorsalgia, unspecified; Z90.710 Acquired absence of both cervix and uterus; Z59.0 Homelessness; Z88.0 Allergy status to penicillin; Z88.8 Allergy status to other drugs, medicaments and biological substances; Z88.1 Allergy status to other antibiotic agents; Z91.041 Radiographic dye allergy status; Z79.82 Long term (current) use of aspirin
CPT/HCPCS: 36415; 71045; 80053; 83880; 84484; 85025; 85610; 85730; 93005; 94640; 94760; 96374; 99284; J1940